=== PATIENT | male | born 1950 ===

== ENCOUNTER 2018-11-07 14:24 | Day surgery (SDC) | payer OTHER ==
[2018-11-07] MEDS ORDERED: LR 1,000 ML IV ONE (14:46)
--- NOTE | 2018-11-07 16:41 | PDPROPOC ---
Sedation Plan of Care Sedation Plan of Care: mental status noted, patient educated of risks, benefits , alternatives, patient can tolerate sedation ASA Classification: ASA 2 Planned drugs: fentanyl, midazolam Mallampati Score: Class 1 Mallampati Reference Image: Patient passed 3-3-2 rule?: Yes
[2018-11-07] MEDS ORDERED: MIDAZOLAM 2 MG/2 ML VIAL ONE (16:43)
--- NOTE | 2018-11-07 16:43 | PDGENHP ---
History & Physical Chief Complaint: phx large polyp removed one year ago History of Present Illness: large flat right sided polyp Pertinent Past, Social, Family History: no tobacco. occ alcohol. fhx - no cc. hypothyroid Relevant Physical Exam: A+Ox3. CTA. S1S2. +BS, soft nt Cardiorespiratory Assessment: class 2
[2018-11-07] MEDS ORDERED: fentaNYL 100 MCG/2 ML INJ ONE (16:44)
[2018-11-07] MEDS ORDERED: MIDAZOLAM 2 MG/2 ML VIAL IVP ONE (17:36)
[2018-11-07] MEDS ORDERED: fentaNYL 100 MCG/2 ML INJ IVP ONE (17:37)
--- NOTE | 2018-11-07 17:54 | GIREPORT ---
[facility] - Endoscopy Department Patient Name: Jp Vargas Procedure Date: 11/07/2018 4:42 PM Patient Type: Outpatient Attending MD/ ER Physician: Vincenzo Anderson MD Procedure: Colonoscopy Indications: Surveillance: Personal history of piecemeal removal of large sessile ad enoma on last colonoscopy (less than 1 year ago) Providers: Vincenzo Anderson MD Referring MD: Michel Lorenzana MD Medicines: Fentanyl 100 micrograms IV, Midazolam 6 mg IV Complications: No immediate complications. Estimated blood loss: Minimal. Description of Procedure: After obtaining informed consent, the scope was passed under direct vis ion. Throughout the procedure, the patient's blood pressure, pulse, and oxyg en saturations were monitored continuously. The Colonoscope was introduced through the anus and advanced to the terminal ileum, with identificatio n of the appendiceal orifice and IC valve. The colonoscopy was performed wit hout difficulty. The patient tolerated the procedure well. The quality of th e bowel preparation was good. Findings: The digital rectal exam was normal. The terminal ileum appeared normal. A 7 mm polyp was found in the cecum. The polyp was semi-sessile. The po lyp was removed with a cold snare. Resection and retrieval were complete. Estimated blood loss was minimal. A post polypectomy scar was found in the proximal ascending colon. Ther e was residual polyp tissue. Biopsies were taken with a cold forceps for histology. Estimated blood loss was minimal. Fulguration to ablate the lesion remnants by argon plasma at 0.5 liters/minute and 20 gill was successful. Estimated blood loss was minimal. A 3 mm polyp was found in the splenic flexure. The polyp was sessile. T he polyp was removed with a piecemeal technique using a cold biopsy forcep s. Resection and retrieval were complete. Estimated blood loss was minimal . Many medium-mouthed diverticula were found in the sigmoid colon and descending colon. Non-bleeding internal hemorrhoids were found during retroflexion. The exam was otherwise without abnormality. Estimated Blood Loss: Estimated blood loss was minimal. Post Op Diagnosis: - The examined portion of the ileum was normal. - One 7 mm polyp in the cecum, removed with a cold snare. Resected and retrieved. - Post-polypectomy scar in the proximal ascending colon. Biopsied. Patricia matthew with argon plasma coagulation (APC). - One 3 mm polyp at the splenic flexure, removed piecemeal using a cold biopsy forceps. Resected and retrieved. - Diverticulosis in the sigmoid colon and in the descending colon. - Non-bleeding internal hemorrhoids. - The examination was otherwise normal. Recommendation: - Await pathology results. - My office will call with the pathology result with 5-7 days. If you h ave not heard from my office by 12-14, do not assume the pathology is kings [facility], please call [phone] to get the pathology results. - Repeat colonoscopy date to be determined after pending pathology resu lts are reviewed for surveillance based on pathology results. If previous polypectomy site is without adenomatous tissue then the interval is 3 y ears. - High fiber diet indefinitely. - 30-35 grams of dietary fiber per day. Can use supplemental fiber. - A high fiber diet may decrease risk of complications from diverticulo sis. There is no need to avoid seeds or nuts. - Patient has a contact number available for emergencies. The signs and symptoms of potential delayed complications were discussed with the pat ient. Return to normal activities tomorrow. Written discharge instructions we re provided to the patient. - Continue present medications. - Avoid Aspirin and NSAIDs for 7-10 days except as used for cardiac or stroke prevention. - Discharge patient to home (ambulatory). - Return to primary care physician as previously scheduled. - Thank you for allowing me to help in your patient's care. Do not hesi owens to call with any questions. Attending Participation: I personally performed the entire procedure. Justin Mckeon M.D Vincenzo Anderson MD 11/07/2018 5:53:59 PM This report has been signed electronicallyMatthew MD Justin Number of Addenda: 0 Note Initiated On: 11/07/2018 4:42 PM Total Procedure Duration Time 0 hours 23 minutes 36 seconds [email or web address]
[2018-11-07 19:57] VITALS: BP 141/82
== END 2018-11-07 18:26 | disposition home or self-care (01) ==
LOC: FSGY 14:24
PROVIDERS: ATTEND Internal Medicine Gastroenterology
DX: Z86.010 Personal history of colon polyps (principal); D12.0 Benign neoplasm of cecum; D12.3 Benign neoplasm of transverse colon; D12.2 Benign neoplasm of ascending colon
CPT/HCPCS: J2250; J3010